=== PATIENT | male | born 1945 | race Caucasian/White ===

== ENCOUNTER 2020-05-28 18:53 | Inpatient (IN) | payer MEDICARE, MEDICAID, SELFPAY ==
--- NOTE | 2020-05-28 | PATH_ITS ---
[facility] Accession Number: [id number] . 01 Material submitted: . body - TUMOR AT 15CM . 01 Clinical history: . DISTAL BOWEL OBSTRUCTION . 02 Diagnosis: Colon at 15 cm, Biopsies: Invasive adenocarcinoma, moderately differentiated. Lymphovascular invasion not identified. . . IMMUNOHISTOCHEMISTRY TESTING FOR MISMATCH REPAIR PROTEINS: . MLH1: Intact nuclear expression. MSH2: Intact nuclear expression. MSH6: Intact nuclear expression. PMS2: Intact nuclear expression. Background nonneoplastic tissue/internal control with intact nuclear expression. . INTERPRETATION: No loss of nuclear expression of MMR proteins: low probability of microsatellite instability-high (MSI-H)* . * There are exceptions to the above IHC interpretations. These results should not be considered in isolation, and clinical correlation with genetic counseling is recommended to assess the need for germline testing. . * This test was developed and its performance characteristics determined by [employer]. It has not been cleared or approved by the U.S. Food and Drug Administration. The FDA has determined that such clearance or approval is not necessary. This test is used for clinical purposes. It should not be regarded as investigational or for research. [facility] 06/03/2020 1304 Local . 02 Comment: As part of routine director of quality improvement, Dr. Strong has reviewed this case and agrees with the diagnosis of invasive adenocarcinoma. The finding of adenocarcinoma was reported to Dr. Tolbert via PRAVEENA Dolan by Dr. Banegas on 06/02/2020. . 02 Electronically signed: . Judah Banegas MD, PhD, Pathologist NPI- [id number] . 01 Gross description: . The specimen is received in formalin, labeled tumor at 15 cm, and consists of multiple chris-pink fragments of soft tissue measuring 1.2 x 1.0 x 0.2 cm in aggregate. The specimen is filtered and entirely submitted in cassette A1. ([id number]) /FRR 05/31/2020 1359 Local . 02 Pathologist provided ICD-10: C18.9 . 02 CPT . 718464, H12040, B00399 Performed at: 01 [facility] [address] [place] [address], [place], [place] [id number] MD Sedrick Aviles MD Phone: [phone] Performed at: [address] [id number] MD Mavis Miranda MD Phone: [phone]
[2020-05-28 20:53] VITALS: BMI 23.1
--- NOTE | 2020-05-28 22:09 | P.HP_ITS ---
History of Present Illness History of Present Illness Date Patient Seen: 05/28/20 Time Patient Seen: 22:00 Chief complaint: Distal bowel obstruction Narrative: The patient is a gentleman who is been having trouble moving his bowels for 6 months. He has noticed a bit of constipation and gradual narrowing of the stools. He has not seen blood in his stool. For the last 8 the 80s he has had no bowel movements and has had difficulty passing any flatus. He has not passed any for at least several days and is uncomfortable. He denies actual pain in the abdomen but is generally very bloated and uncomfortable. He has never had any abdominal operations. The patient has had a mother with colon cancer. He has never had a colonoscopy. Patient History Family & Social History Family History (Updated 05/28/20 @ 22:14 by Maik Tolbert MD) Mother No problems noted. Other Cancer Social History: household members none Prior Living Arrangements House Safety & Behavioral: Feels Safe in Current Yes Environment Been Physically Hurt or No Threatened By a Person Suicidal Ideation Description None Suicide Plan Description No Plan Tobacco & Substance use: Smoking Status Former smoker alcohol intake current alcohol intake frequency holiday/special occasion Substance Use Type marijuana Meds Home Medications and Allergies Home Medications Medication Instructions Recorded Confirmed Type hydrochlorothiazide 05/28/20 History omeprazole 20 mg PO DAILY 05/28/20 05/28/20 History Review of Systems Review of Systems Narrative: Patient denies double vision pain is eyes earache sore throats trouble swallowing no cough cold or asthma. No heart problems or chest pain. Does have heartburn takes omeprazole. Patient denies seizures or blackouts. He has not been vomiting but is not hungry. No psychiatric illnesses like anxiety or depression. No unusual bruising or bleeding. No new skin lesions. Exam Vital Signs (past 8 hours): Cooperative no apparent distress. Vital signs noted. Eyes are nonicteric. Pupils equal round reactive to light. Conjunctiva pink. Ears w ithout lesion. Nasal septum is midline. Oral mucosa is pink moist no open lesions. His neck is supple. There is no nodes in the neck or supraclavicular areas. Trachea is midline mobile. Thyroid is not enlarged. There are no masses neck or thyroid lungs are clear to auscultation without rales or rhonchi. Equal percussion. Heart regular rate and rhythm without murmur gallop. No bruit in the neck. Abdomen is mildly distended but soft. No guarding. No hernias appreciated. Liver and spleen are not enlarged. Patient is alert oriented x3. Speech rate and content are appropriate. Affect is appropriate. Extremities without bony deformity that is apparent. No joint swelling. Objective Imaging CT scan - abdomen: My impression: CT the abdomen is shows a colon filled with stool. It is somewhat distended but not to the point of ischemia to my vision. Patient appe ars to have a narrowing at his rectosigmoid junction and a normal size rectum. There is gas in the rectum but I do not know if this is from rectal exam or is the patient s own. Labs Labs: Labs reported to me as normal. He has a normal white blood cell count and differential. His electrolytes are reported to me is normal. Patient has labs ordered including a CEA. Assessment & Plan Assessment & Plan narrative: Patient with what appears to be chronic intestinal problems and a large bowel obstruction. I would like to do a flexible sigmoidoscopy to confirm an obstructive process. It from tumor he will probably require a diverting ostomy and evaluation for metastatic disease. If infection is the cause then he may respond to antibiotics and not require a wrist surgical resection at this time. This would allow for a bowel prep. Should 1 ultimately be needed. I have discussed this with the patient. He appears to understand. Will proceed with a flexible sigmoidoscopy an up unprepped bowel. Quality VTE Deep Vein Thrombosis/Pulmonary Embolism Present on Admission: No
--- NOTE | 2020-05-28 22:21 | PM.PREOP ---
Pre-operative Note Interval Note History & Physical reviewed/Exam performed by Physician: Yes Changes to H&P: No ASA Class (for procedural sedation): II
[2020-05-28 22:23] VITALS: BP 155/86; PULSE 80; RESP 18; TEMP 36.8; O2SAT 99
[2020-05-28 22:31] LABS: Add Manual Diff / Slide Review NO; Basophils Absolute Auto 0 /uL (0-100); Basophils Percent Auto 0.5 % (0-2); Eosinophils Absolute Auto 200 /uL (0-450); Eosinophils Percent Auto 2.4 % (2-4); Hematocrit 32.9 % (41-53); Hemoglobin 10.3 g/dL (13.5-17.5); Lymphocytes Absolute Auto 1600 /uL (1100-4500); Lymphocytes Percent Auto 18.1 % (25-40); Mean Corpuscular HGB Conc 31.4 % (30-36); Mean Corpuscular Volume 79.5 fL (80-100); Monocytes Absolute Auto 900 /uL (0-900); Monocytes Percent Auto 10.1 % (3-14); Neutrophils Absolute Auto 5900 /uL (1500-7000); Neutrophils Percent Auto 68.9 % (50-75); Platelet Count 345 X10^3/uL (150-400); Red Blood Cell Count 4.13 X10^6/uL (4.5-5.9); White Blood Cell Count 8.6 X10^3/uL (4.5-11.0)
[2020-05-28 22:46] LABS: Alanine Aminotransferase 20 IU/L (<50); Albumin Globulin Ratio 1.4 (1.0-2.8); Alkaline Phosphatase 71 U/L (38-126); Aspartate Aminotransferase 25 IU/L (17-59); BUN Creatinine Ratio 13.3 (6-22); Bilirubin Total 0.3 mg/dL (0.2-1.3); Blood Urea Nitrogen 16 mg/dL (9-20); Calcium 8.7 mg/dL (8.4-10.2); Carbon Dioxide 32 mmol/L (22-32); Chloride 103 mmol/L (98-107); Estimated Glomerular Filt Rate 59.2 mL/min (>60); Globulin 2.9 g/dL (1.7-4.1); Glucose 105 mg/dL (80-110); HEMOLYSIS < 15 (0-50); Sodium 138 mmol/L (137-145); Total Protein 6.9 g/dL (6.3-8.2)
--- NOTE | 2020-05-28 23:14 | PM.OP.ENDO ---
Operative Date/Time/Diagnoses Date of procedure: 05/28/20 Time of procedure: 22:49 Pre-op diagnosis: Large bowel obstruction Post-op diagnosis: same (Secondary to tumor at 15 cm from the anal verge) Procedure & Clinicians Study performed: Flexible sigmoidoscopy with cold biopsy Same procedure as scheduled: Yes Indications: Patient is a gentleman with a large bowel obstruction. A flexible sigmoidoscopy was performed to confirm the cause of this obstruction, since that would impact timing of surgery and the type of surgery performed. Procedure Notes SCOAP/Timeout: Perform Procedure in detail: Patient was placed in left lateral decubitus position. Digital exam revealed some external hemorrhoids. There were no palpable masses. Scope was inserted very quickly at about 15 cm we encountered an obstructing tumor. It was circumferential. Biopsies were taken. There was no visible lumen. The scope was removed and the patient tolerated the procedure well. Very little air was used during this procedure. Scope withdrawal time: Not applicable Sedation minutes: 0 (Patient was not sedated) Findings: possible cancer (15 cm in the anal verge) Specimen(s): other (Biopsies sent) Complications: none Post-procedure Recommendations: Other recommendation (Patient will undergo colonic diversion in the morning.) Disposition: Acute Care
[2020-05-28 23:17] LABS: Carcinoembryonic Antigen 3.2 ng/mL (0.1-3.0)
[2020-05-28 23:25] VITALS: BP 169/90; PULSE 80; RESP 16; TEMP 36.9; O2SAT 98
[2020-05-29] VITALS (25 sets, daily range): BP systolic 132–203; BP diastolic 77–118; PULSE 78–100; RESP 12–19; TEMP 36.4–38.1; O2SAT 91–100; BMI 23.1
[2020-05-29] MEDS: PANTOPRAZOLE 40 MG VIAL 20 MG IV ×3 (00:07→21:35)
--- NOTE | 2020-05-29 00:50 | PC.NURSE ---
3081 patient seen and assessed. Is alert and oriented. Breath sounds diminished at bases but CTA with RA sat of 98%. HRR. BP elevated at 169/90; patient reports BP trends high normally. Denies nausea. BT hypoactive and abdomen is distended but denies tenderness with palpation. Denies pain but states he feels uncomfortable due to distention. Reports no BM x 8 days and no flatus x 2 days. Had endoscopy which revealed a tumor and is scheduled for surgery in a.m. Currently NPO for surgical procedure. Denies dysuria, frequency or urgency with urination. Is able to turn himself in bed. Reports feeling weak and has been getting out of bed with walker and 1 assist. 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 Bilateral calf SCD's applied. Fall risk score is moderate and bed alarm is activated.
[2020-05-29] MEDS: LACTATED RINGERS 1,000 ML 150 ML IV ×3 (03:52→15:17)
[2020-05-29] MEDS: SODIUM CHLORIDE 0.9% FLUSH 10 ML IV (09:12)
[2020-05-29] MEDS: PIPERACILLIN-TAZO 3.375 GM/50 ML FROZ.PIGGY IV ×2 (11:31→18:00)
[2020-05-29] MEDS: LACTATED RINGERS 1,000 ML 42 ML IV (11:47)
--- NOTE | 2020-05-29 12:32 | PC.NURSE ---
Patients abdomen distended and bowel tones hypoactive. He states that his discomfort is at a tolerable level. Told patient that if he needs pain medication to call for assistance. He was taken down to surgery at 1115.
--- NOTE | 2020-05-29 12:33 | PM.PREOP ---
Pre-operative Note COVID-19 COVID-19 status: Negative Result date/Date tested (Pos, Neg/Pending): 05/28/20 Interval Note History & Physical reviewed/Exam performed by Physician: Yes Changes to H&P: No H&P completed within 30 days and has changed as indicated here:: Discussed risks of bleeding, infection, hernias. He appears to understand.
--- NOTE | 2020-05-29 12:44 | CM.DANOTE ---
Discharge Planning/Care Management DCP: assessment: case received, EMR reviewed and went to room with intent to meet pt and introduce self and role. Room empty: a check in with RN shows that pt has been taken to surgery. Pt is a 75 year old male who admitted to care of [facility]: Dr. Tolbert after a hospital to hospital transfer 05/28. Pt resides in [place]. PCP: listed as Makayla: will confirm with pt. Payer: Medicare and Medicaid. Emergency contact: listed as brother Rl Calhoun. Pt was taken for an EGD yesterday and now with a ? of cancer and biopsies taken. Surgery for colonic diversion to treat his large bowel obstruction was planned for today and, as noted, he is in the surgery now. White board in pt's room is updated with DCP team contact info. P: DCP team will be following as POC unfolds to assist with d/c issues and options. Pt is well positioned in terms of his insurance and INPT admission status for various d/c dispositions should need arise. CM Discharge Assessment Start: 05/29/20 12:39 Freq: Status: Active Protocol: Document 05/29/20 12:40 ITV (Rec: 05/29/20 12:42 ITV [id number]) Discharge Planning Assessment Advance Directives? No History Provided By Patient,Medical Record Prior Living Arrangements House Household Members none Is patient alert and oriented? Yes Review Status In Process
--- NOTE | 2020-05-29 13:14 | SUR.OPER ---
Supine on padded OR bed, head on pillow, arms secured on padded arm boards at <90 degrees abduction, legs uncrossed, safety belt at thigh, tape over blanket over lower legs.
--- NOTE | 2020-05-29 14:34 | PM.OP.1 ---
Operative Date/Time/Diagnoses Date of procedure: 05/29/20 Time of procedure: 14:34 Pre-op diagnosis: Large bowel obstruction secondary to a tumor in the rectosigmoid junction. Post-op diagnosis: same (Tumor appeared to be located right at the peritoneal reflection.) Procedure & Clinicians Procedure: Sigmoid loop colostomy formation Same procedure as scheduled: Yes Indications: Patient with a large bowel obstruction due to tumor within 15 cm of the anal verge. Surgeon: Maik Tolbert Click Yes if Unassisted: Yes Anesthesia Type: General Operative Notes Findings: Smooth liver. Tumor appeared to be right at the peritoneal reflection. Loop ostomy performed without difficulty. Closure Type: primary Specimen(s): none sent Prosthetic devices, grafts, tissues, transplants, or devices: Bar for the colostomy Estimated Blood Loss (mL): 15 Blood products transfused: none Procedure in detail: The patient is placed supine on the operating room table underwent general endotracheal anesthesia. He was prepped and draped in the usual fashion. Hawkins catheter was inserted. Vertical midline incision was made from just below the umbilicus down. Was carried under direct vision in the peritoneal cavity. On exploration the colon was distended with air and stool. It appeared to be viable of however. Incision was made at the attachments of the colon to the lateral abdominal wall. This mobilized the sigmoid further and it appeared to easily come up to a level above the skin. [place] was placed around the colon adjacent to the wall. I chose a point on the abdominal wall where the colon appeared that it would easily come up over the muscle. And of skin removed. I dissected bluntly down to the fascia. A cruciate incision was made in the anterior fascia and a vertical incision the posterior. Easily brought up through this opening without difficulty. I ensured that there was no twist. The fascia at the midline was closed with a running 1. PDS. The subQ was with interrupted 3-0 Vicryl and skin closed with a running 4-0 Vicryl subcuticular stitch and Steri-Strips. An occlusive dressing was applied to separate this from the ostomy. I then opened the colonic loop transversely and used interrupted 3-0 Vicryl sutures to suture the edge down to the skin. A bar was placed where the [place] was in the [place] removed. A wafer and bag were attached and everything appeared to be healthy and viable. The ostomy was pink. Patient was awakened and extubated and taken the recovery room good condition. Complications: none Post-operative Condition: stable Disposition: PACU
[2020-05-29] MEDS: LABETALOL 20 MG/4 ML SYRINGE 5 MG IV ×4 (15:03→15:38)
[2020-05-29] MEDS: HYDROMORPHONE 2 MG INJ IV (15:28)
--- NOTE | 2020-05-29 16:18 | SUR.PHASEI ---
pt with elevated BPs on arrival from OR. Anesthesia aware, orders for labetalol obtained. Gave 20 mg over 4 doses, BP down to 160's/100's. PreOp BP was 178/93. Notified anesthesia and okd from her perspective. Ostomy on transfer to the floor with liquid stool output and gas from stoma. Bridge in place. Wafer needed to be reinforced with medipore tape. Report to Karen GRISSOM. Per Dr Tolbert, pt allowed to have sips and chips diet. Pt declined sip of water. pain up to 6/10, medicated with 0.5 mg IV dilaudid and down to 3/10.
[2020-05-29] MEDS: LACTATED RINGERS 1,000 ML 125 ML IV (16:38)
[2020-05-29] MEDS: KETOROLAC 30 MG/ML VIAL 15 MG IV (16:40)
[2020-05-29] MEDS: MORPHINE 4 MG/ML INJ IV ×2 (17:13→21:36)
[2020-05-29] MEDS: GABAPENTIN 300 MG CAPSULE PO (21:36)
[2020-05-30] MEDS: PIPERACILLIN-TAZO 3.375 GM/50 ML FROZ.PIGGY IV
[2020-05-30] MEDS: LACTATED RINGERS 1,000 ML 125 ML IV ×3 (02:42→21:20)
[2020-05-30 04:40] VITALS: BP 136/84; PULSE 81; RESP 18; TEMP 37; O2SAT 97
--- NOTE | 2020-05-30 05:59 | PC.NURSE ---
Dr. Torres acquisition marketing coordinator MD notified pt. only voided 50 cc & bladder scanned of 308 cc. Order received to do In & out Cath. Will implement order & monitor.
[2020-05-30] MEDS: KETOROLAC 30 MG/ML VIAL 15 MG IV ×2 (06:28→12:38)
--- NOTE | 2020-05-30 06:37 | PC.NURSE ---
Pt. reported penile pain, was been tender since maher catheter was discontinued in recovery. C/O of penile tenderness when straight was done. Noted 400 cc of cloudy dark jessica urine, pain level was 5/10 in his abdomen & penis. Medicated with 15 mg. of Toradol IVP & instructed to call RN if Toradol is not effective for his pain. Will cont. POC & monitor.
[2020-05-30 07:52] VITALS: BP 131/76; PULSE 77; RESP 18; TEMP 36.1; O2SAT 95
[2020-05-30] MEDS: GABAPENTIN 300 MG CAPSULE PO ×2 (08:45→21:47)
[2020-05-30] MEDS: TAMSULOSIN 0.4 MG CAPSULE PO (08:45)
[2020-05-30] MEDS: ENOXAPARIN 40 MG/0.4 ML SYRINGE SUBCUT (08:46)
[2020-05-30] MEDS: PANTOPRAZOLE 40 MG VIAL 20 MG IV ×2 (08:46→21:48)
[2020-05-30] MEDS: ACETAMINOPHEN 325 MG TABLET 650 MG PO (10:40)
[2020-05-30 11:15] VITALS: BP 139/85; PULSE 78; RESP 16; TEMP 36.2; O2SAT 97
--- NOTE | 2020-05-30 13:37 | PM.PNPO.1 ---
Subjective Subjective Date Patient Seen: 05/30/20 Time Patient Seen: 09:00 Interval history: Patient is a gentleman who out and diverting ostomy performed yesterday. He feels much better today than yesterday. He has had a small amount of output he thinks from his colostomy. Breathing okay. Exam Vital Signs (past 8 hours): - 05/30/20 07:52 05/30/20 11:15 Temperature 97.0 F L 97.2 F L Pulse Rate 77 78 Respiratory Rate 18 16 Blood Pressure 131/76 139/85 Pulse Oximetry 95 97 Oxygen Delivery Method Room Air Oxygen Flow Rate 0 Narrative Exam Narrative: Abdomen a little distended. Small amount of stool output into the ostomy bag. The bar is still in place. The ostomy is healthy and viable. There has been no leakage or soiling of the midline dressing. It is dry and intact. Objective Labs Result Diagrams: 05/28/20 22:21 05/28/20 22:21 [facility] Family History (Updated 05/28/20 @ 22:14 by Maik Tolbert MD) Mother No problems noted. Other Cancer Social History household members: none Smoking Status: Former smoker alcohol intake: current Assessment & Plan Post-op Postoperative Procedures: Procedures Operation Date: 05/28/20 20:30 Actual Procedures Side Surgeon p Colonoscopy Flexible Sigmoidoscopy with biopsy Maik Tolbert MD Operation Date: 05/29/20 12:15 Actual Procedures Side Surgeon p Diverting Colostomy Maik Tolbert MD Postoperative status narrative: Doing as expected. His ostomy is healthy. Postoperative plan narrative: Continue IV fluids. May have sips of liquids today. We will probably remove the bar in a day or 2. I was able talk with his brother who came in to visit him. It turns out the patient has schizophrenia. He is unmedicated. He refused to take it. His brother says he is actually doing pretty well. His schizophrenia was much more symptomatic in the past. The patient lives alone and his brother does not think he will be able to function very well alone initially and to the gets accustomed to this ostomy. I suspect the patient will need temporary skilled care nursing and that is been discussed with the social working team. I do not anticipate the patient will be ready for discharge for several days at least. Quality VTE Deep Vein Thrombosis/Pulmonary Embolism Present on Admission: No
--- NOTE | 2020-05-30 13:42 | CM.DPC ---
DCP: Spoke with Dr. Tolbert this morning and he is recommending that pt have a rehab/recovery stay at snf setting while he recovers from this emergent surgery and learns to manage his new colostomy. HE stated that he had discussed this with pt and pt's brother Rl Calhoun/Ramesh: cell: [phone]. Met then with pt and Rl (does not carry POA but is pt's closest living relative). Both confirm that they are in agreement with this plan as pt does live alone in an apartment complex in [place] and a short week or 2 of snf stay would be very beneficial. Rl confirms there is no one who is able to go in to help pt. SNF choice list: discussed: [facility] first choice. Referral to [facility]: [facility] is in quarantine for at least another week due to a pt testing COVID +. 2nd choice: [facility]. Pt likes idea of close access to Dr. Tolbert as he will be following up with him on tumor biopsy results. Referral: to [facility]: she requests efx of clinical and will give to her team to review. Acceptance anticipated. PCP: confirmed as Merlin Benavides, part of [facility]. Rl will be bringing in pt's glasses, cell phone and primer charger and paperwork/bills so he will have these here and at the snf. P: DCP team to continue to follow.
--- NOTE | 2020-05-30 14:42 | PC.NURSE ---
Patients colostomy bag full of soft consistency stool xxl, wafer and bag changed after patient cleaned up. Stoma is beefy red with a plastic piece going through stoma that helps keep if from collapsing back in. Given tylenol and toradol for discomfort. Patient voided 100cc of urine this am and is going to try and go again, he started on po flomax. BT+x4, abdomen is slightly distended. He is resting comfortably now.
[2020-05-30 15:55] VITALS: BP 137/89; PULSE 80; RESP 16; TEMP 36.4; O2SAT 96
--- NOTE | 2020-05-30 18:49 | PC.NURSE ---
PATIENTS OSTOMY BAG LEAKING,NEEDED TO BE CLEANED AND REPLACED. ADHESIVE AND APPLIANCE REPLACED AND SECURED TO PATIENT.PATIENT DENIES ANY PAIN WITH PROCEDURE. UP WITH SBA AND WALKER TO BATHROOM. SCDS IN PLACE
[2020-05-30 19:56] VITALS: BP 159/97; PULSE 87; RESP 16; TEMP 36.4; O2SAT 99
[2020-05-30 23:49] VITALS: BP 146/74; PULSE 94; RESP 16; TEMP 36.9; O2SAT 94
[2020-05-31] MEDS: LACTATED RINGERS 1,000 ML 125 ML IV ×2 (02:40→10:50)
[2020-05-31 05:28] VITALS: BP 148/99; PULSE 99; RESP 16; TEMP 37.8; O2SAT 93
[2020-05-31 05:51] LABS: Add Manual Diff / Slide Review NO; Basophils Absolute Auto 0 /uL (0-100); Basophils Percent Auto 0.2 % (0-2); Eosinophils Absolute Auto 200 /uL (0-450); Eosinophils Percent Auto 2.6 % (2-4); Hematocrit 26.8 % (41-53); Hemoglobin 8.4 g/dL (13.5-17.5); Lymphocytes Absolute Auto 1300 /uL (1100-4500); Lymphocytes Percent Auto 14.1 % (25-40); Mean Corpuscular HGB Conc 31.3 % (30-36); Mean Corpuscular Hemoglobin 24.9 PG (26-34); Mean Corpuscular Volume 79.7 fL (80-100); Monocytes Absolute Auto 700 /uL (0-900); Neutrophils Absolute Auto 6700 /uL (1500-7000); Neutrophils Percent Auto 75.1 % (50-75); Platelet Count 286 X10^3/uL (150-400); Red Blood Cell Count 3.37 X10^6/uL (4.5-5.9); Red Cell Distribution Width 15.9 % (11.6-14.8); White Blood Cell Count 8.9 X10^3/uL (4.5-11.0)
[2020-05-31 06:01] LABS: Alanine Aminotransferase 15 IU/L (<50); Albumin 2.9 g/dL (3.5-5.0); Albumin Globulin Ratio 1.1 (1.0-2.8); Alkaline Phosphatase 56 U/L (38-126); Aspartate Aminotransferase 24 IU/L (17-59); BUN Creatinine Ratio 11.9 (6-22); Bilirubin Total 0.4 mg/dL (0.2-1.3); Blood Urea Nitrogen 13 mg/dL (9-20); Calcium 7.6 mg/dL (8.4-10.2); Carbon Dioxide 29 mmol/L (22-32); Chloride 103 mmol/L (98-107); Estimated Glomerular Filt Rate > 60.0 mL/min (>60); Globulin 2.6 g/dL (1.7-4.1); Glucose 125 mg/dL (80-110); HEMOLYSIS < 15 (0-50); Potassium 3.6 mmol/L (3.4-5.1); Sodium 133 mmol/L (137-145); Total Protein 5.5 g/dL (6.3-8.2)
[2020-05-31 08:00] VITALS: BP 165/89; PULSE 99; RESP 20; TEMP 37.2; O2SAT 93
[2020-05-31] MEDS: KETOROLAC 30 MG/ML VIAL 15 MG IV ×2 (08:00→23:34)
[2020-05-31] MEDS: TAMSULOSIN 0.4 MG CAPSULE PO (08:00)
[2020-05-31] MEDS: GABAPENTIN 300 MG CAPSULE PO ×2 (08:00→21:41)
[2020-05-31] MEDS: ENOXAPARIN 40 MG/0.4 ML SYRINGE SUBCUT (08:00)
[2020-05-31] MEDS: PANTOPRAZOLE 40 MG VIAL 20 MG IV (08:00)
--- NOTE | 2020-05-31 10:41 | PC.NURSE ---
Addendum entered by Cristy Bell R.N. 05/31/20 15:30: Patient back to chair. Denies pain. Patient tolerated full liquid diet for lunch, would like to know if he is able to advance to general diet. Followed up with MD. Verbal orders given for general diet. Addendum entered by Cristy Bell R.N. 05/31/20 14:17: MD in to see patient, bar removed. Colostomy pouch changed by this RN and replacement demonstrated to patient with instructions. Patient is receptive to teaching and verbalizes instructions back. Patient has rather flat affect but was very responsive to teaching. Patient up with PT, ambulated in the hallway with FWW. Denies pain at this time. Back to chair. Original Note: Patient up to chair with FWW, SBA. Denies dizziness. A/O x4, reports pain 6/10 across abdomen. Midline dressing is intact, quarter sized shadow drainage noted on left lateral aspect, colostomy intact, stoma is red and moist, bar intact. Patient is passing flatus and stool. Pouch burped and emptied. Lung sounds clear bilaterally, diminished in bases. Patient on room air. Patient denies SOB. LR infusing per orders in L hand, R hand IV site is CDI, saline locked. Patient's brother is currently bedside. Call light and phone are in reach.
--- NOTE | 2020-05-31 11:15 | P.PN_ITS ---
Subjective Subjective Date Patient Seen: 05/31/20 Time Patient Seen: 11:16 Interval history: Patient post diverting ostomy. The ostomy is working well. He has been watching what the nurses due to empty it. He has not required a change of the actual bag. He has had no ostomy teaching thus far to talk about appliances on how to put them on etcetera. He is having some mild abdominal discomfort. He feels pretty well otherwise. He denies hallucinations. His b felicianoer states that he is actually doing very well in that regard. Exam Vital Signs (past 8 hours): - 05/31/20 05:28 05/31/20 08:00 Temperature 100.0 F H 99 F Pulse Rate 99 H 99 H Respiratory Rate 16 20 Blood Pressure 148/99 H 165/89 H Pulse Oximetry 93 93 Oxygen Delivery Method Room Air Oxygen Flow Rate 0 Narrative Exam Narrative: Cooperative in no apparent distress. Dressing is intact. Bag is intact. I removed the bar today. Brown soft stool in the bag. He apparently has had a large amount of stool last 2 days. Objective Labs Result Diagrams: 05/31/20 05:25 05/31/20 05:25 Labs: Laboratory Results - last 24 hr 05/31/20 05/31/20 05:25 05:25 WBC 8.9 RBC 3.37 L Hgb 8.4 L Hct 26.8 L MCV 79.7 L MCH 24.9 L MCHC 31.3 RDW 15.9 H Plt Count 286 Neut % (Auto) 75.1 H Lymph % (Auto) 14.1 L [place] % (Auto) 8.0 Eos % (Auto) 2.6 Baso % (Auto) 0.2 Neut # (Auto) 6700 Lymph # (Auto) 1300 [place] # (Auto) 700 Eos # (Auto) 200 Baso # (Auto) 0 Sodium 133 L Potassium 3.6 Chloride 103 Carbon Dioxide 29 BUN 13 Creatinine 1.09 Estimated GFR > 60.0 BUN/Creatinine Ratio 11.9 Glucose 125 H Calcium 7.6 L Total Bilirubin 0.4 AST 24 ALT 15 Alkaline Phosphatase 56 Total Protein 5.5 L Albumin 2.9 L Globulin 2.6 Albumin/Globulin Ratio 1.1 [facility] Family History (Updated 05/28/20 @ 22:14 by Maik Tolbert MD) Mother No problems noted. Other Cancer Social History household members: none Smoking Status: Former smoker alcohol intake: current Assessment & Plan Post-op Postoperative Procedures: Procedures Operation Date: 05/28/20 20:30 Actual Procedures Side Surgeon p Colonoscopy Flexible Sigmoidoscopy with biopsy Maik Tolbert MD Operation Date: 05/29/20 12:15 Actual Procedures Side Surgeon p Diverting Colostomy Maik Tolbert MD Postoperative status: doing well Postoperative plan narrative: Ostomy teaching. Advanced diet slowly. Discharge plan to a nursing facility at this time. Ambulate in the halls. Quality VTE Deep Vein Thrombosis/Pulmonary Embolism Present on Admission: No
--- NOTE | 2020-05-31 12:07 | CM.DPC ---
DCP cIBT: Spoke to [place] in admissions at [facility]. Confirmed that they can accept today, or tomorrow if he is not yet ready today. Let her know that this classification case manager would continue to update her. Spoke to patient and gave him update regarding going to [facility], and he is ok with the plan. P: DCP to continue to follow. Dr. Causey had seen patient and is continuing to advance his diet. Will check in tomorrow with Dr. Causey, to see if patient will be ready for discharge tomorrow. [facility] will be able to accept. PASSR will need to be completed. Amy Diaz RN/Fire Control Technician B
[2020-05-31] MEDS: FERROUS SULFATE 325 MG TABLET PO (12:26)
[2020-05-31] MEDS: MULTIVIT,CALC,MINS/IRON/FOLIC 1 TABLET 1 TAB PO (12:27)
[2020-05-31 15:59] VITALS: BP 154/91; PULSE 83; RESP 18; TEMP 36.8; O2SAT 99
--- NOTE | 2020-05-31 16:12 | PT.IIE ---
Current Diagnoses Unspecified intestinal obstruction, unspecified as to partial versus complete obstruction (05/28/20) Surgery Performed Operation Date: 05/28/20 20:30 Actual Procedures p Colonoscopy Flexible Sigmoidoscopy with biopsy - Maik Tolbert MD Operation Date: 05/29/20 12:15 Actual Procedures p Diverting Colostomy - Maik Tolbert MD Physical Therapy Inpatient Evaluation/Re-Eval M1 PT/OT-IP Prior Functional Status Start: 05/31/20 16:01 Freq: NEEDED Status: Active Protocol: Document 05/31/20 16:02 SAK (Rec: 05/31/20 16:11 [facility] [id number]) Medical Review Prior Functional Status Medical History Reviewed Yes Diet/Fluid Consistency Regular Communication no limitations Mobility and Gait independent Activities of Daily Living and IADL's independent Social History Household Members none Living Arrangements House Number of Floors (Floors) One Floor Number of Stairs To Enter/Railing? 0 Home Environment Standard Height Toilet,Tub/ Shower Home Equipment Front Wheel Walker,Straight Cane Employment Status Retired Additional Social History Comment retired transport company manager M2 PT-IP Current Condition Start: 05/31/20 16:01 Freq: NEEDED Status: Active Protocol: Document 05/31/20 16:02 SAK (Rec: 05/31/20 16:11 [facility] [id number]) Physical Therapy Current Condition Current Condition Evaluation Date 05/31/20 Treatment Diagnosis bowel obstruction, weakness, s /o colostomy Onset Date 05/28/21 Precautions Other Precautions ostomy; gait belt around chest . No MMT resistance Weight Bearing Status Weight Bearing Status Full Weight Bearing M3 PT-IP Subjective Start: 05/31/20 16:01 Freq: NEEDED Status: Active Protocol: Document 05/31/20 16:02 [facility] (Rec: 05/31/20 16:11 [facility] [id number]) Subjective Physical Therapy Visit Type Type Initial Evaluation Visit Start Time 02:30 Visit Stop Time 02:59 Total Visit Minutes 29 Number of MANAGER MANUFACTURING Visits 0 Physical Therapy Visit Comments Patient Comments Patient reports he is planning to go to SNF at discharge to recover before going home. Therapy Pain Assessment Pain When Pain Assessed At Rest Location abdomen Intensity 1 Description Acute,Pulling,Tender M4 PT-IP Mobility and Gait Start: 05/31/20 16:01 Freq: NEEDED Status: Active Protocol: Document 05/31/20 16:02 SAK (Rec: 05/31/20 16:11 [facility] [id number]) PT-Transfer Assessment Sit to and From Stand Sit to and from Stand Minimal Assistance Equipment Transfer Assistive Device Gait Belt,Front Wheeled Walker Transfers Transfer Destination Chair Transfer Technique Stand Step Pivot Transfer Ability Level of Assist Minimal Assistance Comments Mobility Comments cues for safety including backing up to chair and reaching for armrest prior to sitting Gait Assessment Gait Gait Assistance Required: Minimum Assistance Distance (Feet) 75 Able to Maintain Weight Bearing Status Yes During Gait Assistive Devices Assistive Device Gait Belt,Front Wheeled Walker Gait Deviations General Gait Pattern Decreased Stride Length, Decreased Feet Clearance, Flexed Trunk,Wide Based Gait Comments Gait Comments Small LOB 2x during turning with gait, required min assist to regain balance PT-Balance Assessment Sitting Balance and Reactions Static Sitting Balance Ability Good Dynamic Sitting Balance Ability Good Standing Balance and Reactions Static Standing Balance Ability Fair Dynamic Standing Balance Ability Poor M5 PT-IP Objective Assessments Start: 05/31/20 16:01 Freq: NEEDED Status: Active Protocol: Document 05/31/20 16:02 [facility] (Rec: 05/31/20 16:11 [facility] [id number]) Orientation Orientation/Cognition Level of Alertness Alert Orientation Name,Month,Date,Year,Day of Week,Place,Situation Safety Awareness Understands Safety Issues Memory Description No Deficits Noted Gross Range of Motion Upper Extremity ROM Assessment Within Functional Limits Lower Extremity ROM Assessment Within Functional Limits Strength Upper Extremity Strength Assessment Within Functional Limits Lower Extremity Strength Assessment Within Functional Limits Coordination Assessment Gross Coordination Gross Coordination WNL Sensation Assessment Sensation Gross Sensation WNL Muscle Tone Muscle Tone WNL Yes M7 PT-IP Assessment and Plan Start: 05/31/20 16:01 Freq: NEEDED Status: Active Protocol: Document 05/31/20 16:02 [facility] (Rec: 05/31/20 16:11 [facility] [id number]) PT Summary Assessment and Plan Potential Rehabilitation Potential Good Status of Condition at Evaluation Evolving Summary Impairments Strength,Balance,Bed Mobility, Transfers,Gait,Activity Tolerance Assessment Summary Patient presents with functional limitations s/p colostomy and would benefit from PT for mobility retraining, balance training, general strengthening. He reports using a cane or walker at home for safety with gait due to weakness and decreased circulation in his legs. Patient lives alone. Feel he would benefit from SNF rehab at discharge and that is his plan. Goals Bed Mobility Goal Independent Transfer Goal Contact Guard Assistance Gait Goal Contact Guard Assistance Days to Meet Goals 3 Frequency of Treatment Frequency Of Treatment Twice a Day Discharge Recommendations PT Discharge Recommendations SNF Rehab Transportation Needs at Discharge Private Vehicle,Wheelchair/ Cabulance
[2020-05-31 19:50] VITALS: BP 161/92; PULSE 96; RESP 18; TEMP 37.4; O2SAT 97
[2020-05-31] MEDS: PANTOPRAZOLE 20 MG TABLET PO (21:41)
[2020-05-31 23:45] VITALS: BP 161/81; PULSE 94; RESP 16; TEMP 37; O2SAT 96
[2020-06-01] VITALS (7 sets, daily range): BP systolic 147–179; BP diastolic 81–104; PULSE 69–87; RESP 15–17; TEMP 36.3–36.8; O2SAT 96–100
[2020-06-01] MEDS: PANTOPRAZOLE 20 MG TABLET PO ×2 (08:32→21:19)
[2020-06-01] MEDS: KETOROLAC 30 MG/ML VIAL 15 MG IV (08:32)
[2020-06-01] MEDS: FERROUS SULFATE 325 MG TABLET PO (08:32)
[2020-06-01] MEDS: GABAPENTIN 300 MG CAPSULE PO ×2 (08:32→21:19)
[2020-06-01] MEDS: TAMSULOSIN 0.4 MG CAPSULE PO (08:32)
[2020-06-01] MEDS: MULTIVIT,CALC,MINS/IRON/FOLIC 1 TABLET 1 TAB PO (08:32)
[2020-06-01] MEDS: SODIUM CHLORIDE 0.9% FLUSH 10 ML IV ×2 (08:33→21:19)
[2020-06-01] MEDS: ENOXAPARIN 40 MG/0.4 ML SYRINGE SUBCUT (08:33)
--- NOTE | 2020-06-01 14:09 | DI.CT.S_ITS ---
PROCEDURE: CT CHEST W CON INDICATIONS: Clinical concern for metastatic colorectal cancer TECHNIQUE: After the administration of intravenous contrast, 5 mm thick sections acquired from the pulmonary apices to the posterior costophrenic angles. 1 mm axial lung, 5 mm thick coronal and sagittal reformats and 7 mm axial MIP were acquired. For radiation dose reduction, the following was used: automated exposure control, adjustment of mA and/or kV according to patient size. COMPARISON: Outside Facility, CT, CT ABDOMEN PELVIS W CON, 05/28/2020, 14:54. FINDINGS: Image quality: Excellent. Lungs and pleura: No acute air space opacities. There is a small right-sided pleural effusion. No pneumothorax. Central and peripheral airways are patent and normal in caliber. Mediastinum: Heart size is normal. No pericardial effusion. No mediastinal or hilar adenopathy by size criteria. Thoracic aorta and central pulmonary arteries are normal in size. Esophagus is normal in caliber. No hiatal hernia. Bones and chest wall: No suspicious bony lesions. No vertebral body compression fractures. S-shaped scoliotic curvature is seen. Age-appropriate bony degenerative changes are seen. Accentuated thoracic kyphosis is seen. No axillary or supraclavicular adenopathy by size criteria. Thyroid gland demonstrates no significant abnormality. Abdomen: Water density cysts can be seen within the liver and within the left kidney. The transverse colon was previously distended, yet now appears within normal limits. The visualized portions of the upper abdominal structures are otherwise unremarkable for imaging technique. IMPRESSION: No pulmonary soft tissue nodules are seen to suggest metastatic disease. Small right-sided pleural effusion. The transverse colon no longer appears abnormally distended. Incidental note is made of: Liver and left renal cysts S shaped scoliotic curvature Dictated by: Naeem Hernández M.D. on 06/01/2020 at 16:28 Approved by: Naeem Hernández M.D. on 06/01/2020 at 16:31
--- NOTE | 2020-06-01 14:31 | CM.DPC ---
DCP Cont: Let Dr. Causey know that [facility] is able to accept. Had spoken to [place] in admissions at [facility] who stated that they could take him no later than 3:00, and this was this morning. Dr. Causey is writing orders for discharge, but now, [place] stated that she needs to check in with [facility] to see if they can take patient after 3:00. already asked Dr. Causey to write the orders, and COVID swab is being done. Gave [place] this field nurse case manager's phone number, and she will call as soon as she knows. Went ahead and completed PASSR. P: Patient will either discharge today to [facility], if they do not accept, will be tomorrow. Amy Diaz RN/[employer]
--- NOTE | 2020-06-01 14:38 | PM.DS.1 ---
History of Present Illness History of Present Illness Chief complaint: Distal bowel obstruction Narrative: The patient is a gentleman who is been having trouble moving his bowels for 6 months. He has noticed a bit of constipation and gradual narrowing of the stools. He has not seen blood in his stool. For the last 8 the 80s he has had no bowel movements and has had difficulty passing any flatus. He has not passed any for at least several days and is uncomfortable. He denies actual pain in the abdomen but is generally very bloated and uncomfortable. He has never had any abdominal operations. The patient has had a mother with colon cancer. He has never had a colonoscopy. Discharge Providers Provider Date of admission: 05/28/20 18:53 Discharge Date: 06/01/20 Primary care physician: Merlin Benavides MD Consults: 05/29/20 16:17 Consult to Discharge Planning Routine Comment: 05/31/20 11:35 Consult to Physical Therapy Evaluate & Treat Comment: assist ambulation/strengthening Physician Instructions: Evaluate and Treat Discharge provider: Maik Tolbert MD Summary Hospital Course Discharge Diagnosis: Colon obstruction acute secondary to colorectal cancer. 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 Chronic Hypertension treated with hydrochlorothiazide History of schizophrenia. Patient has not been treated with medication and is not hallucinating. Patient lives alone and functions well. Hospital Course: Patient underwent an emergent flexible sigmoidoscopy to diagnose the cause of the obstruction. He was taken for a diverting ostomy. He will require further workup as an outpatient and ultimately resection. He may require preoperative radiation chemotherapy which is yet to be determined. Status at Discharge Cognitive/behavioral status at discharge: at baseline, oriented Functional status at discharge: uses cane/walker Overall status at discharge: patient is progressing back to baseline Time Spent with Patient Time spent: Greater than 30 minutes Exam Vital Signs (past 8 hours): - 06/01/20 07:48 06/01/20 11:44 Temperature 97.9 F 98.1 F Pulse Rate 69 87 Respiratory Rate 15 16 Blood Pressure 147/86 H 149/81 H Pulse Oximetry 96 97 Oxygen Delivery Method Room Air Oxygen Flow Rate 0 Objective Labs Result Diagrams: 05/31/20 05:25 05/31/20 05:25 [facility] Family History (Updated 05/28/20 @ 22:14 by Maik Tolbert MD) Mother No problems noted. Other Cancer Social History household members: none Smoking Status: Former smoker alcohol intake: current Discharge Plan Discharge Plan Patient Disposition: SNF Transfer to: [facility] Consult as needed: Mental health Provider Discharge Comment: Patient has an obstructing colon cancer and underwent an emergent loop colostomy. He will require ostomy instructions in teaching. The Steri-Strips on his abdominal wound should be left in place unless there is well-healed with stool. There are no sutures to removed from this incision. Patient is walking with a walker but with assistance. He is quite unsteady on his feet. He does have a history of schizophrenia but has not taken medicines and is not hallucinating and behaving normally. He does seem to have some memory impairment. He is quite cooperative and pleasant. Discharge orders & Medications Prescriptions: New ferrous gluconate 324 mg (37.5 mg iron) tablet 324 mg PO DAILY Qty: 60 RF: 0 multivitamin with minerals [Multiple Vitamin-Minerals] Tablet 1 tab PO DAILY Qty: 60 RF: 0 hydrocodone-acetaminophen [[place]] 5-325 mg tablet 1 tab PO Q4-6H PRN (Reason: painful procedure) Qty: 14 RF: 0 Continued omeprazole 20 mg Capsule,Delayed Release(Dr/Ec) 20 mg PO DAILY RF: 0 hydrochlorothiazide 25 mg Tablet 25 mg DAILY RF: 0 Follow up/Referrals: Merlin Benavides MD [Primary Care Provider] - Maik Tolbert MD [Physician] - 1 Week (Please call and make an appointment to see me in about 7-10 days. If you need to reach a doctor on-call please call our office in listen to the entire message. He will be instructed how to page the doctor on-call for our practice) Discharge Health Status Multidrug resistant organism: No MDRO Precautions: [place] Diet/Activity/Treatments Diet: Diet as Tolerated Activity: Avoid heavy lifting or straining. Skin/Wound/Dressing Care Report to your healthcare provider any signs of infection, such as:: chills, fever, increased pain, unusual drainage and unusual redness Dressing: Ostomy care. Steri-Strips on the midline incision should be left alone unless they become soiled with stool. Then they can be removed carefully. Special Rehabilitation Services Reason for rehabilitation: Post-operative therapy and Recovery r/t decondition Discharge Data Primary Care Provider: Harlock,Merlin Quality VTE Deep Vein Thrombosis/Pulmonary Embolism Present on Admission: No
--- NOTE | 2020-06-01 14:47 | P.PN_ITS ---
Subjective Subjective Date Patient Seen: 06/01/20 Time Patient Seen: 13:00 Interval history: Patient doing well. Walking in the [place] with assistance with a walker. Little unsteady getting up. His lungs are clear. His abdomen is less distended and soft. His midline incision looks fine. His ostomy is healthy. There are 2 little areas of superficial necrosis in the mesenteric fat which is protruding above the skin level. The remainder is all healthy. There is no cellulitis. I reapplied an ostomy appliance. His midline wound looks fine. Exam Vital Signs (past 8 hours): - 06/01/20 07:48 06/01/20 11:44 Temperature 97.9 F 98.1 F Pulse Rate 69 87 Respiratory Rate 15 16 Blood Pressure 147/86 H 149/81 H Pulse Oximetry 96 97 Oxygen Delivery Method Room Air Oxygen Flow Rate 0 Objective Labs Result Diagrams: 05/31/20 05:25 05/31/20 05:25 [facility] Family History (Updated 05/28/20 @ 22:14 by Maik Tolbert MD) Mother No problems noted. Other Cancer Social History household members: none Smoking Status: Former smoker alcohol intake: current Assessment & Plan Post-op Postoperative Procedures: Procedures Operation Date: 05/28/20 20:30 Actual Procedures Side Surgeon p Colonoscopy Flexible Sigmoidoscopy with biopsy Maik Tolbert MD Operation Date: 05/29/20 12:15 Actual Procedures Side Surgeon p Diverting Colostomy Maik Tolbert MD Postoperative status narrative: Doing quite well. Large amount of ostomy output. Postoperative plan narrative: Had plan to discharge him today but apparently the facility can no longer except him so he will be discharged tomorrow. Quality VTE Deep Vein Thrombosis/Pulmonary Embolism Present on Admission: No
[2020-06-01 14:52] LABS: COVID19 -Nasal RAPID Negative (Negative)
--- NOTE | 2020-06-01 16:03 | PT.IPTN ---
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) Unspecified intestinal obstruction, unspecified as to partial versus complete obstruction (05/28/20) Surgery Performed Operation Date: 05/28/20 20:30 Actual Procedures p Colonoscopy Flexible Sigmoidoscopy with biopsy - Maik Tolbetr MD Operation Date: 05/29/20 12:15 Actual Procedures p Diverting Colostomy - Maik Tolbert MD Physical Therapy Treatment Note M2 PT-IP Current Condition Start: 05/31/20 16:01 Freq: NEEDED Status: Active Protocol: Document 05/31/20 16:02 SAK (Rec: 05/31/20 16:11 SAK [id number]) Physical Therapy Current Condition Current Condition Evaluation Date 05/31/20 Treatment Diagnosis bowel obstruction, weakness, s /o colostomy Onset Date 05/28/21 Precautions Other Precautions ostomy; gait belt around chest . No MMT resistance Weight Bearing Status Weight Bearing Status Full Weight Bearing M3 PT-IP Subjective Start: 05/31/20 16:01 Freq: NEEDED Status: Active Protocol: Document 06/01/20 15:55 AW (Rec: 06/01/20 16:03 AW [id number]) Subjective Physical Therapy Visit Type Type Treatment Note Visit Start Time 15:12 Visit Stop Time 15:30 Total Visit Minutes 18 Physical Therapy Visit Comments Patient Comments I've already been up for a long walk today but I'll go again. Therapy Pain Assessment Pain When Pain Assessed During Mobility Pain Present Pain Present Pain Reported Location abdomen Intensity 2 Description Acute,Pulling,Tender M4 PT-IP Mobility and Gait Start: 05/31/20 16:01 Freq: NEEDED Status: Active Protocol: Document 06/01/20 15:55 AW (Rec: 06/01/20 16:03 AW [id number]) PT-Bed Mobility Assessment Rolling Type of Rolling Log Rolling,Roll to Left Level of Assist Contact Guard Assistance Supine to Sit Supine to Sit Contact Guard Assistance Scooting Scooting to Edge of Bed Contact Guard Assistance PT-Transfer Assessment Sit to and From Stand Sit to and from Stand Minimal Assistance Equipment Transfer Assistive Device Gait Belt,Front Wheeled Walker Transfers Transfer Destination Chair Transfer Technique Stand Step Pivot Transfer Ability Level of Assist Minimal Assistance,1 Person Assistance Comments Mobility Comments Bed mobility performed with HOB flat. Pt continued to require cues for safe walker management during transfers Gait Assessment Gait Gait Assistance Required: Contact Guard Assist Distance (Feet) 200 Able to Maintain Weight Bearing Status Yes During Gait Assistive Devices Assistive Device Gait Belt,Front Wheeled Walker Orthotic/Prosthetic Devices or Brace: No Gait Deviations General Gait Pattern Decreased Stride Length, Decreased Feet Clearance, Flexed Trunk,Wide Based Gait Factors Limiting Gait Function Factors Limiting Gait Function Decreased Strength,Pain,Poor Balance,Poor Safety Awareness Comments Gait Comments Pt required frequent cues for safe distance from walker frame to trunk. Gait degraded with increased distance with shorter step lengths and decreased foot clearance bilaterally. Stair Climbing Assessment Comments Stair Climbing Comments Not assessed. PT-Balance Assessment Sitting Balance and Reactions Static Sitting Balance Ability Good Dynamic Sitting Balance Ability Good Standing Balance and Reactions Static Standing Balance Ability Fair Dynamic Standing Balance Ability Fair Device Used FWW M5 PT-IP Objective Assessments Start: 05/31/20 16:01 Freq: NEEDED Status: Active Protocol: Document 05/31/20 16:02 SAK (Rec: 05/31/20 16:11 SAK [id number]) Orientation Orientation/Cognition Level of Alertness Alert Orientation Name,Month,Date,Year,Day of Week,Place,Situation Safety Awareness Understands Safety Issues Memory Description No Deficits Noted Gross Range of Motion Upper Extremity ROM Assessment Within Functional Limits Lower Extremity ROM Assessment Within Functional Limits Strength Upper Extremity Strength Assessment Within Functional Limits Lower Extremity Strength Assessment Within Functional Limits Coordination Assessment Gross Coordination Gross Coordination WNL Sensation Assessment Sensation Gross Sensation WNL Muscle Tone Muscle Tone WNL Yes M6 PT-IP Treatment Start: 05/31/20 16:01 Freq: NEEDED Status: Active Protocol: Document 06/01/20 15:55 AW (Rec: 06/01/20 16:03 AW [id number]) Physical Therapy Treatment Exercises Exercises Ankle Pumps,Gluteal Sets,Quad Sets Education Education Provided Precautions,Safety M7 PT-IP Assessment and Plan Start: 05/31/20 16:01 Freq: NEEDED Status: Active Protocol: Document 06/01/20 15:55 AW (Rec: 06/01/20 16:03 AW [id number]) PT Summary Assessment and Plan Potential Rehabilitation Potential Good Status of Condition at Evaluation Evolving Summary Impairments Strength,Balance,Bed Mobility, Transfers,Gait,Activity Tolerance Progress Towards Goals Progressing Toward Goals Assessment Summary Pt presents with improved activity tolerance but states he feels he is operating with 50% of his normal capacity/ reserve. Gait and safety awareness degraded with increased distance/fatigue. Pt would benefit from SNF rehab for mobility retraining, balance training, general strengthening. Goals Bed Mobility Goal Independent Transfer Goal Contact Guard Assistance Gait Goal Contact Guard Assistance Days to Meet Goals 3 Frequency of Treatment Frequency Of Treatment Once a Day Discharge Recommendations PT Discharge Recommendations SNF Rehab Transportation Needs at Discharge Private Vehicle,Wheelchair/ Cabulance
--- NOTE | 2020-06-01 17:25 | PC.NURSE ---
Addendum entered by Lynda Hussein R.N. 06/01/20 21:35: Pt denies pain, but blood pressures checked on both arms by HAZARD WASTE HANDLER and left arm by this leader writer trending upward. Current pressure left arm 179/[address] Tolbert was notified via telephone and orders to resume home HCTZ received and entered. Addendum entered by Lynda Hussein R.N. 06/01/20 19:31: Medial aspect of pt's ostomy wafer will not remain adherent. Removed entire wafer and cleansed area around stoma with soap and water. Replaced wafer after enlarging area to allow stoma to appear through opening in its entirety. Pt denies any pain with this care. Bag was reattached. Pt watched this procedure and offered suggestions based on previous stoma care. Hearty appetite and taking diet well. Steristrips intact to central abdominal incision. Original Note: Pt showered with assistance by HAZARD WASTE HANDLER. Medial aspect of ostomy wafer has loosened prior to shower and was reinforced with hypafix tape. Tape replaced following shower. To CT scan via wheelchair. Was ambulatory in hallway with P.T. at beginning of shift.
[2020-06-01] MEDS: hydroCHLOROthiazide 25 MG TABLET PO (21:58)
--- NOTE | 2020-06-02 02:16 | PC.NURSE ---
Pt c/o odd odor coming from possibly his surgical site/stoma. Odor smells like bile/stool. Checked ostomy bag, bag is intact and sealed, moderately full of soft, brown stool. Bag drained. Stoma is red, beefy.
[2020-06-02 06:26] VITALS: BP 135/84; PULSE 80; RESP 16; TEMP 36.7; O2SAT 98
[2020-06-02 08:00] VITALS: BP 142/86; PULSE 76; RESP 16; TEMP 36.3; O2SAT 96
[2020-06-02] MEDS: MULTIVIT,CALC,MINS/IRON/FOLIC 1 TABLET 1 TAB PO (08:58)
[2020-06-02] MEDS: ENOXAPARIN 40 MG/0.4 ML SYRINGE SUBCUT (08:58)
[2020-06-02] MEDS: PANTOPRAZOLE 20 MG TABLET PO (08:59)
[2020-06-02] MEDS: TAMSULOSIN 0.4 MG CAPSULE PO (08:59)
[2020-06-02] MEDS: SODIUM CHLORIDE 0.9% FLUSH 10 ML IV (08:59)
[2020-06-02] MEDS: FERROUS SULFATE 325 MG TABLET PO (08:59)
[2020-06-02] MEDS: GABAPENTIN 300 MG CAPSULE PO (08:59)
--- NOTE | 2020-06-02 10:10 | CM.DPC ---
DCP: continued: pt noted to have a d/c order from yesterday afternoon. EMR reviewed. Confirmed with RN coordinator Estee Soto that it was appropriate to use the d/c order from Dr. Tolbert of 05/01 as the only reason pt did not go was that the orders were not received in the timeline requested by the [facility]. Met then with pt, confirmed that he is comfortable with the d/c for today. Alerted his brother and advocate Rl that d/c was today. Rl will be helping his brother followup with his providers after the snf stay. October/[facility] confirms that van can pick pt up at 1100. PRAVEENA Angela is updated. She will make sure that some ostomy supplies are sent with pt so that the facility knows what is currently being used. Did confirm with CM team that the char house supervisor specialist is no longer working at as of first of year so the teach and type of appliance tried has been done with RNs caring for pt and surgeons.
--- NOTE | 2020-06-02 11:34 | PM.DS.1 ---
History of Present Illness History of Present Illness Chief complaint: Distal bowel obstruction Narrative: The patient is a gentleman who is been having trouble moving his bowels for 6 months. He has noticed a bit of constipation and gradual narrowing of the stools. He has not seen blood in his stool. For the last 8 the 80s he has had no bowel movements and has had difficulty passing any flatus. He has not passed any for at least several days and is uncomfortable. He denies actual pain in the abdomen but is generally very bloated and uncomfortable. He has never had any abdominal operations. The patient has had a mother with colon cancer. He has never had a colonoscopy. Discharge Providers Provider Date of admission: 05/28/20 18:53 Discharge Date: 06/02/20 Primary care physician: Merlin Benavides MD Consults: 05/29/20 16:17 Consult to Discharge Planning Routine Comment: 05/31/20 11:35 Consult to Physical Therapy Evaluate & Treat Comment: assist ambulation/strengthening Physician Instructions: Evaluate and Treat Discharge provider: Maik Tolbert MD Summary Hospital Course Discharge Diagnosis: Please see note dictated yesterday. There are no changes in the diagnoses. Hospital Course: Patient underwent diversion. His postoperative course was smooth and he was discharged because of his weakness, his living alone and his inability to really care for this initially he is discharged to a halfway facility Status at Discharge Cognitive/behavioral status at discharge: at baseline, oriented Functional status at discharge: uses cane/walker Overall status at discharge: patient is progressing back to baseline Exam Vital Signs (past 8 hours): - 06/02/20 06:26 06/02/20 08:00 Temperature 98.0 F 97.4 F L Pulse Rate 80 76 Respiratory Rate 16 16 Blood Pressure 135/84 142/86 H Pulse Oximetry 98 96 Oxygen Delivery Method Room Air Oxygen Flow Rate 0 Objective Labs Result Diagrams: 05/31/20 05:25 05/31/20 05:25 Labs: Laboratory Results - last 24 hr 06/01/20 14:25 SARS-CoV-2 (PCR) Negative [facility] Family History (Updated 05/28/20 @ 22:14 by Maik Tolbert MD) Mother No problems noted. 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 He will require ostomy instructions in teaching. The Steri-Strips on his abdominal wound should be left in place unless there is well-healed with stool. There are no sutures to removed from this incision. Patient is walking with a walker but with assistance. He is quite unsteady on his feet. He does have a history of schizophrenia but has not taken medicines and is not hallucinating and behaving normally. He does seem to have some memory impairment. He is quite cooperative and pleasant. Discharge orders & Medications Prescriptions: New ferrous gluconate 324 mg (37.5 mg iron) tablet 324 mg PO DAILY Qty: 60 RF: 0 multivitamin with minerals [Multiple Vitamin-Minerals] Tablet 1 tab PO DAILY Qty: 60 RF: 0 hydrocodone-acetaminophen [[place]] 5-325 mg tablet 1 tab PO Q4-6H PRN (Reason: painful procedure) Qty: 14 RF: 0 Continued omeprazole 20 mg Capsule,Delayed Release(Dr/Ec) 20 mg PO DAILY RF: 0 hydrochlorothiazide 25 mg Tablet 25 mg DAILY RF: 0 Follow up/Referrals: Merlin Benavides MD [Primary Care Provider] - Maik Tolbert MD [Physician] - 1 Week (Please call and make an appointment to see me in about 7-10 days. If you need to reach a doctor on-call please call our office in listen to the entire message. He will be instructed how to page the doctor on-call for our practice) Discharge Health Status Multidrug resistant organism: No MDRO Precautions: [place] Diet/Activity/Treatments Diet: Diet as Tolerated Activity: Avoid heavy lifting or straining. Skin/Wound/Dressing Care Report to your healthcare provider any signs of infection, such as:: chills, fever, increased pain, unusual drainage and unusual redness Dressing: Ostomy care. Steri-Strips on the midline incision should be left alone unless they become soiled with stool. Then they can be removed carefully. [facility] Reason for rehabilitation: Post-operative therapy and Recovery r/t decondition Discharge Data Primary Care Provider: Merlin Benavides Quality VTE Deep Vein Thrombosis/Pulmonary Embolism Present on Admission: No
--- NOTE | 2020-06-02 11:58 | PC.NURSE ---
Called [facility] to give report, spoke with J Luis. Discharge packet given to facility transportation technician. IV's removed, intact. All belongings sent with patient. Extra ostomy supplies given to patient for facility use. Patient left via wheelchair with facility transportation technician.
== END 2020-06-02 11:15 | DRG 330 ==
PROVIDERS: Admitting Provider Specialist; PCP Family Medicine; Referring Provider Specialist; Visit Provider Specialist
PROC: 0DJD8ZZ Inspection of Lower Intestinal Tract, Via Natural or Artificial Opening Endoscopic (ICD-10-PCS; CPT 45378; principal; 2020-05-28 10:30)
PROC: 0DDN8ZX Extraction of Sigmoid Colon, Via Natural or Artificial Opening Endoscopic, Diagnostic (ICD-10-PCS; CPT 44320; principal; 2020-05-29 12:15)
DX: C19 Malignant neoplasm of rectosigmoid junction (principal); K56.609 Unspecified intestinal obstruction, unspecified as to partial versus complete obstruction; D50.0 Iron deficiency anemia secondary to blood loss (chronic); F20.9 Schizophrenia, unspecified; K21.9 Gastro-esophageal reflux disease without esophagitis; I10 Essential (primary) hypertension; Z87.891 Personal history of nicotine dependence; Z20.822 Contact with and (suspected) exposure to COVID-19
CPT/HCPCS: 36415; 44160; 45331; 71260; 80053; 82378; 82962; 85025; 87635; 93005; 97116; 97162; 99222; C9113; J0330; J1100; J1170; J1650; J1885; J2250; J2270; J2405; J2543; J2704; J3010; Q9967